=== PATIENT | female | born 1995 | race Caucasian/White ===

== ENCOUNTER → 2022-07-26 | Outpatient (CLI) | payer OTHER ==
[2022-07-26 12:10] LABS: BUN/CREATININE RATIO 13 (0-10)
[2022-07-27 07:10] LABS: FSH 5.8 mIU/mL (.)
[2022-07-27 08:13] LABS: LUTEINIZING HORMONE(LH) 4.8 mIU/mL (.); TESTOSTERONE, SERUM 25 ng/dL (13-71)
[2022-07-27 13:08] LABS: INSULIN 6.1 uIU/mL (2.6-24.9)
== END ==
LOC: LAB 10:56
PROVIDERS: Nurse Practitioner Family
DX: N92.6 Irregular menstruation, unspecified (principal)
CPT/HCPCS: 36415; 80053; 82627; 83001; 83002; 83520; 84146; 84403; 84439; 84443; 84702